=== PATIENT | female | born 1965 | race Caucasian/White ===

== ENCOUNTER 2020-09-25 12:10 | Inpatient (IN) | payer BC, OTHER ==
[~2020-09-25] VITALS: Ht 165.1 cm; Wt 68.5 kg
[~2020-09-25 12:10] MED LIST: NO HOME MEDICATIONS
--- NOTE | 2020-09-25 12:20 | NUR ---
MADELEINE [id number] from Home"Been having sciatica/Right leg pain (01/04 per patient) x1wk and swelling Fell down today made pain worse". Noted rg lower leg edema +3. Will continue to monitor the patient.
--- NOTE | 2020-09-25 12:40 | NUR ---
DR. QUINTERO AT BEDSIDE.
--- NOTE | 2020-09-25 12:55 | NUR ---
TREE CLIMBER AT BEDSIDE.
--- NOTE | 2020-09-25 14:22 | NUR ---
COVID SWAB DONE AND SENT TO THE LAB
[2020-09-25] MEDS ORDERED: IBUP200C5 PO (14:35)
[2020-09-25] MEDS ORDERED: ONDANSETRON HCL/PF 4 MG/2 ML VIAL IVP PRN (15:30)
[2020-09-25] MEDS ORDERED: Z GUARD REMEDY 2 OZ OINT TP PRN (15:30)
[2020-09-25] MEDS ORDERED: ZOLPIDEM TARTRATE 5 MG TABLET PO PRN (15:30)
[2020-09-25] MEDS ORDERED: MAGNESIUM HYDROXIDE 30 ML UDC PO PRN (15:30)
[2020-09-25] MEDS ORDERED: MAG HYDROX/AL HYDROX/SIMETH 30 ML UDC PO PRN (15:30)
--- NOTE | 2020-09-25 17:46 | NUR ---
report given to nurse Farris
--- NOTE | 2020-09-25 18:02 | NUR ---
PATIENT TRANSFERRED TO ROOM 307-1 IN STABLE CONDITION.
--- NOTE | 2020-09-25 18:30 | NUR ---
MS/RN RECEIVING NOTES RECEIVED PATIENT ALERT AND ORIENTED X4, ABLE TO MAKE NEEDS KNOWN. TRANSFERED FROM ER WITH A HIP FRACTURE. PATIENT IN EXTREME PAIN ON RIGHT HIP. MORPHINE PRN GIVEN. ORIENTED PATIENT ON THE UNIT AND HOW TO SAFE USE OF EQUIPOTENTS. SAFETY PRECAUTIONS IN PLACED. BED LOCKED IN LOWEST POSITION, CALL LIGHT WITHIN REACH. WILL ENDORSE TO THE NEXT SHIFT FOR CONTINUITY OF CARE.
[2020-09-25] MEDS: MORPHINE SULFATE INJ 2 MG/ML DISP.SYRIN IV PRN ×2 (18:41→22:48)
[2020-09-25 19:15] LABS: BASOPHILS % (AUTO) 0.1 % (0.0-2.0); EOSINOPHILS % (AUTO) 0.6 % (0.0-6.0); HEMATOCRIT 39 % (33-45); HEMOGLOBIN 13.6 g/dL (11.5-14.8); LYMPHOCYTES # (AUTO) 2.3 K/uL (0.8-4.8); LYMPHOCYTES % (AUTO) 31.2 % (20.0-44.0); MEAN CORPUSCULAR HGB CONC 35 g/dl (31.0-36.0); MEAN CORPUSCULAR VOLUME 88 fL (82-100); MONOCYTES # (AUTO) 0.8 K/uL (0.1-1.30); NEUTROPHILS # (AUTO) 4.3 K/uL (1.8-8.9); NEUTROPHILS % (AUTO) 57.1 % (43.0-81.0); PLATELET COUNT (AUTO) 276 K/uL (150-450); RED BLOOD CELL COUNT(AUTO) 4.49 MIL/uL (4.0-5.2); WHITE BLOOD COUNT (AUTO) 7.5 K/uL (4.3-11.0)
[2020-09-25 19:21] LABS: CALCIUM, SERUM 9.1 mg/dL (8.5-10.1); CREATININE 0.7 mg/dL (0.6-1.3); POTASSIUM 3.5 mmol/L (3.5-5.1)
--- NOTE | 2020-09-25 19:39 | NUR ---
MS RN OPENING NOTE PATIENT A/OX4; ABLE TO MAKE NEEDS KNOWN. TOLERATING ROOM AIR WELL WITH NO SOB. WILL CONTINUE PAIN ASSESSMENT. R HAND #20G S/L; PATENT AND INTACT. SAFETY MEASURES IN PLACE: BED TO LOWEST LOCKED POSITION, SIDE RAILS UPX2, CALL LIGHT WITHIN EASY REACH, BED ALARM ON. PATIENT IN STABLE CONDITION WILL CONTINUE PLAN OF CARE.
[2020-09-25 20:00] VITALS: BP 131/71
[2020-09-25] MEDS: ENOXAPARIN SODIUM 40 MG/0.4 ML DISP.SYRIN SQ SCH (22:20)
--- NOTE | 2020-09-25 22:48 | NUR ---
MS RN NOTE - PAIN PATIENT C/O 10/10 RIGHT HIP AND KNEE PAIN. ADMINISTERED MORPHINE ORDERED. WILL CONTINUE TO REASSESS FOR PAIN IN 30 MINUTES.
[2020-09-26] MEDS: HYDROCODONE/APAP 5/325MG TABLET PO PRN ×3 (02:10→18:20)
--- NOTE | 2020-09-26 02:10 | NUR ---
MS RN NOTE - PAIN PATIENT C/O 09/04 RIGHT HIP AND KNEE PAIN. ADMINISTERED NORCO 5 - 325MG ORDERED. WILL CONTINUE TO REASSESS FOR PAIN IN 30 MINUTES.
[2020-09-26] MEDS: MORPHINE SULFATE INJ 2 MG/ML DISP.SYRIN IV PRN ×4 (04:00→23:51)
--- NOTE | 2020-09-26 04:00 | NUR ---
MS RN NOTE - PAIN PATIENT C/O 11/04 RIGHT HIP AND KNEE PAIN. ADMINISTERED MORPHINE ORDERED. WILL CONTINUE TO REASSESS FOR PAIN IN 30 MINUTES.
[2020-09-26 05:45] LABS: BASOPHILS % (AUTO) 0.1 % (0.0-2.0); EOSINOPHILS % (AUTO) 0.7 % (0.0-6.0); HEMATOCRIT 39 % (33-45); HEMOGLOBIN 13.1 g/dL (11.5-14.8); LYMPHOCYTES # (AUTO) 2.8 K/uL (0.8-4.8); LYMPHOCYTES % (AUTO) 34.3 % (20.0-44.0); MEAN CORPUSCULAR HGB CONC 34 g/dl (31.0-36.0); MEAN CORPUSCULAR VOLUME 89 fL (82-100); MONOCYTES # (AUTO) 0.9 K/uL (0.1-1.30); MONOCYTES % (AUTO) 10.6 % (2.0-12.0); NEUTROPHILS # (AUTO) 4.4 K/uL (1.8-8.9); NEUTROPHILS % (AUTO) 54.3 % (43.0-81.0); PLATELET COUNT (AUTO) 234 K/uL (150-450); RED BLOOD CELL COUNT(AUTO) 4.36 MIL/uL (4.0-5.2); WHITE BLOOD COUNT (AUTO) 8.1 K/uL (4.3-11.0)
--- NOTE | 2020-09-26 05:57 | NUR ---
MS RN CLOSING NOTE PATIENT SLEEPING A/OX4; ABLE TO MAKE NEEDS KNOWN. TOLERATING ROOM AIR WELL WITH NO SOB. R HAND #20G S/L; PATENT AND INTACT. ABNORMAL EXTERNAL ROTATION NOTED TO RLE. SAFETY MEASURES IN PLACE: BED TO LOWEST LOCKED POSITION, SIDE RAILS UPX2, CALL LIGHT WITHIN EASY REACH, BED ALARM ON. PATIENT IN STABLE CONDITION; WILL ENDORSE PLAN OF CARE.
[2020-09-26 06:15] LABS: CALCIUM, SERUM 8.9 mg/dL (8.5-10.1); CREATININE 0.6 mg/dL (0.6-1.3); PHOSPHORUS 3.4 mg/dL (2.5-4.9); POTASSIUM 3.9 mmol/L (3.5-5.1); THYROID STIMULATING HORMONE 5.019 uIU/mL (0.358-3.74)
[2020-09-26] MEDS: PANTOPRAZOLE 40 MG TABLET.DR PO SCH (06:42)
--- NOTE | 2020-09-26 06:42 | NUR ---
MS RN NOTE - PAIN PATIENT C/O 08/04 RIGHT HIP AND KNEE PAIN. ADMINISTERED NORCO 5 - 325MG ORDERED. WILL CONTINUE TO REASSESS FOR PAIN IN 30 MINUTES.
--- NOTE | 2020-09-26 07:42 | NUR ---
MS/RN OPENING NOTE RECEIVED PATIENT IN BED SLEEPING, EASILY AROUSABLE, A/OX4; ABLE TO MAKE NEEDS KNOWN. TOLERATING ROOM AIR WELL WITH NO SOB. R HAND #20G S/L; PATENT AND INTACT. NO DISTRESS NOTED AT THIS TIME. SAFETY PRECAUTIONS IN PLACE: BED TO LOWEST LOCKED POSITION, SIDE RAILS UPX2, CALL LIGHT WITHIN EASY REACH, BED ALARM ON. PATIENT IN STABLE CONDITION; WILL CONTINUE TO MONITOR PATIENT.
[2020-09-26 08:00] VITALS: BP 126/72
[2020-09-26] MEDS: IV NS 0.9% 1,000 ML IV PRN ×2 (08:48→17:06)
--- NOTE | 2020-09-26 11:33 | NUR ---
MS/RN NOTES CONTACTED DR. ROBINS REGARDING ORTHO CONSULT, PER DR. ROBINS, ORTHO WAS CALLED IN FROM ER YESTERDAY. TEXTED DR. BUENO ([employer]O [employer]) AND FOLLOWED UP REGARDING PATIENT NEEDED TO BE SEEN FOR ORTHO CONSULT. AWAITING RESPONSE.
[2020-09-26] MEDS: HYDROCODONE/APAP 10/325MG TABLET PO PRN ×3 (12:16→18:15)
[2020-09-26 16:07] VITALS: BP 114/60
--- NOTE | 2020-09-26 18:51 | NUR ---
MS/RN NORCO ADMIN PATIENT REFUSED NORCO 10/325MG PO PRN FOR PAIN, AND INSTEAD WANTED A SMALLER DOSE. RN RETURNED NORCO 10/325MG ONE TAB TO THE OMNICEL WITNESSED BY CHARGE NURSE MARISOL. RN PULLED FROM OMNICEL AND ADMINISTERED NORCO 5/325MG PO PRN AT 18:20.
--- NOTE | 2020-09-26 18:55 | NUR ---
MS/RN CLOSING NOTE PATIENT IN BED AWAKE, A/OX4; ABLE TO MAKE NEEDS KNOWN. TOLERATING ROOM AIR WELL WITH NO SOB. R HAND #20G IV ACCESS IS INTACT WITH A RUNNING IV NS @125 ML/HR. NO DISTRESS NOTED AT THIS TIME. ALL NEEDS MET. SAFETY PRECAUTIONS IN PLACE: BED TO LOWEST LOCKED POSITION, SIDE RAILS UPX2, CALL LIGHT WITHIN EASY REACH, BED ALARM ON. PATIENT IN STABLE CONDITION; WILL ENDORSE TO THE NEXT SHIFT FOR CONTINUITY OF CARE.
--- NOTE | 2020-09-26 19:59 | NUR ---
MS RN OPENING NOTE PATIENT A/OX4; ABLE TO MAKE NEEDS KNOWN. TOLERATING ROOM AIR WELL WITH NO SOB. R HAND #20G NS @ 125ML/HR; PATENT AND INTACT. ABNORMAL EXTERNAL ROTATION NOTED TO RLE. ALL NEEDS MET. SAFETY MEASURES IN PLACE: BED TO LOWEST LOCKED POSITION, SIDE RAILS UPX2, CALL LIGHT WITHIN EASY REACH, BED ALARM ON. PATIENT IN STABLE CONDITION; WILL CONTINUE PLAN OF CARE.
[2020-09-26 20:00] VITALS: BP_SYST 122; BP_SYST 138; BP_DIAS 72; BP_DIAS 83
[2020-09-26] MEDS: ENOXAPARIN SODIUM 40 MG/0.4 ML DISP.SYRIN SQ SCH (21:09)
--- NOTE | 2020-09-26 23:51 | NUR ---
MS RN NOTE - PAIN PATIENT C/O 10/10 RIGHT HIP AND KNEE PAIN. ADMINISTERED MORPHINE ORDERED. WILL CONTINUE TO REASSESS FOR PAIN IN 30 MINUTES.
[2020-09-27] MEDS: IV NS 0.9% 1,000 ML IV PRN (00:55)
[2020-09-27] MEDS: MORPHINE SULFATE INJ 2 MG/ML DISP.SYRIN IV PRN ×4 (03:57→17:07)
--- NOTE | 2020-09-27 04:30 | NUR ---
MS RN NOTE -F/C INSERTED F/C WITH YELLOW URINE OUTPUT BY GRAVITY; PATENT AND INTACT. EDUCATED PATIENT RISKS AND BENEFITS OF F/C.
[2020-09-27 05:50] LABS: BASOPHILS % (AUTO) 0.1 % (0.0-2.0); EOSINOPHILS % (AUTO) 2.9 % (0.0-6.0); HEMATOCRIT 37 % (33-45); HEMOGLOBIN 12.4 g/dL (11.5-14.8); LYMPHOCYTES # (AUTO) 2.1 K/uL (0.8-4.8); LYMPHOCYTES % (AUTO) 31.7 % (20.0-44.0); MEAN CORPUSCULAR HGB CONC 34 g/dl (31.0-36.0); MEAN CORPUSCULAR VOLUME 89 fL (82-100); MONOCYTES # (AUTO) 0.6 K/uL (0.1-1.30); MONOCYTES % (AUTO) 9.4 % (2.0-12.0); NEUTROPHILS # (AUTO) 3.6 K/uL (1.8-8.9); NEUTROPHILS % (AUTO) 55.9 % (43.0-81.0); PLATELET COUNT (AUTO) 242 K/uL (150-450); WHITE BLOOD COUNT (AUTO) 6.5 K/uL (4.3-11.0)
--- NOTE | 2020-09-27 06:13 | NUR ---
MS RN CLOSING NOTE PATIENT SLEEPING A/OX4; ABLE TO MAKE NEEDS KNOWN. TOLERATING ROOM AIR WELL WITH NO SOB. R HAND #20G S/L; PATENT AND INTACT. ABNORMAL EXTERNAL ROTATION NOTED TO RLE. F/C DRAINING CLEAR YELLOW URINE; PATENT AND INTACT. SAFETY MEASURES IN PLACE: BED TO LOWEST LOCKED POSITION, SIDE RAILS UPX2, CALL LIGHT WITHIN EASY REACH, BED ALARM ON. PATIENT IN STABLE CONDITION; WILL ENDORSE PLAN OF CARE.
[2020-09-27 06:54] LABS: ALBUMIN 2.8 g/dL (3.4-5.0); BILIRUBIN,TOTAL 0.6 mg/dL (0.2-1.0); CALCIUM, SERUM 8.7 mg/dL (8.5-10.1); CREATININE 0.5 mg/dL (0.6-1.3); MAGNESIUM 1.7 mg/dL (1.8-2.4); PHOSPHORUS 2.7 mg/dL (2.5-4.9); POTASSIUM 3.7 mmol/L (3.5-5.1); TOTAL PROTEIN, SERUM 5.9 g/dL (6.4-8.2)
--- NOTE | 2020-09-27 07:15 | NUR ---
RN NOTES PATIENT IN BED RESTING, AWAKE AND VERBALLY RESPONSIVE. A/O X4, ABLE TO MAKE NEEDS KNOWN. BREATHING EVEN AND UNLABORED, TOLERATING ROOM AIR. SEEN EATING BREAKFAST. MATA CATH INTACT AND DRAINING YELLOW-COLORED URINE. SAFETY MEASURES IN PLACE. WILL CONTINUE TO MONITOR.
[2020-09-27 07:42] VITALS: BP 131/76
[2020-09-27] MEDS: PANTOPRAZOLE 40 MG TABLET.DR PO SCH (07:47)
--- NOTE | 2020-09-27 08:02 | NUR ---
RN NOTES PATIENT REQUESTED PAIN MEDICATION FOR PAIN RATED 10/10; PRN MORPHINE PROVIDED TO PATIENT INDICATED.
[2020-09-27] MEDS: Magnesium 1GM/D5W 100ML PREMIX 100 ML IV SCH ×2 (08:27→10:33)
[2020-09-27] MEDS: HYDROCODONE/APAP 5/325MG TABLET PO PRN ×3 (08:56→18:38)
--- NOTE | 2020-09-27 11:50 | NUR ---
RN NOTES SEEN BY DR. BUENO TODAY W/ ORDER FOR SURGERY: IM NAILING RIGHT SUBTROCHANTERIC FEMUR FX. CONSENT FORMS SIGNED BY PATIENT AND PLACED IN CHART. WILL ENDORSE CHECKLIST TO SPECIALIST WOUND CARE RN SURGERY IS FOR TOMORROW.
[2020-09-27 16:00] VITALS: BP 106/72
--- NOTE | 2020-09-27 18:53 | NUR ---
RN NOTES PATIENT IN BED RESTING, AWAKE AND VERBALLY RESPONSIVE. BREATHING EVEN AND UNLABORED, CONTINUES ON ROOM AIR. NPO POST MIDNIGHT FOR SURGERY W/ DR. BUENO TOMORROW. CONSENT IN CHART. SAFETY MEASURES MAINTAINED. WILL ENDORSE TO EMERGENCY DEPARTMENT AIDE RN FOR ANSHUL.
[2020-09-27 20:00] VITALS: BP 115/69
--- NOTE | 2020-09-27 20:15 | NUR ---
MS/TELE/RN RECEIVED PATIENT LYING IN BED AWAKE, ALERT, ORIENTED, COMFORTABLE, NO C/O PAIN, NO DISTRESS NOTED, CALL LIGHT IN REACH, PLAN OF CARE DISCUSSED, VERBALISED UNDERSTANDING. ALL NEEDS ATTENDED. WILL MONITOR.
[2020-09-27] MEDS: ENOXAPARIN SODIUM 40 MG/0.4 ML DISP.SYRIN SQ SCH (21:00)
--- NOTE | 2020-09-27 21:37 | NUR ---
MS/VERONICA/RN OBTAINED AN ORDER FROM KAL PEUNTE, TO HOLD THE LOVENOX DOSE TONIGHT PATIENT WILL HAVE SURGERY TOMORROW.
[2020-09-28] MEDS: MORPHINE SULFATE INJ 2 MG/ML DISP.SYRIN IV PRN ×4 (02:05→21:13)
[2020-09-28] MEDS: IV NS 0.9% 1,000 ML IV PRN ×2 (02:17→10:36)
--- NOTE | 2020-09-28 06:15 | NUR ---
MA/TELE/RN PATIENT IS AWAKE, COMFORTABLE, NO C/O PAIN, NO DISTRESS NOTE, NO CHANGE IN CONDITION, URINE SPECIMEN FOR UA COLLECTED FROM F/C PORT, CALL LIGHT IN REACH, ALL NEEDS ATTENDED AT THIS TIME, WILL CONTINUE TO MONITOR.
[2020-09-28 06:38] LABS: BASOPHILS % (AUTO) 0.2 % (0.0-2.0); EOSINOPHILS % (AUTO) 2.4 % (0.0-6.0); HEMATOCRIT 36 % (33-45); HEMOGLOBIN 12.1 g/dL (11.5-14.8); LYMPHOCYTES % (AUTO) 30.6 % (20.0-44.0); MEAN CORPUSCULAR HGB CONC 34 g/dl (31.0-36.0); MEAN CORPUSCULAR VOLUME 89 fL (82-100); MONOCYTES # (AUTO) 0.5 K/uL (0.1-1.30); MONOCYTES % (AUTO) 8.2 % (2.0-12.0); NEUTROPHILS # (AUTO) 3.9 K/uL (1.8-8.9); NEUTROPHILS % (AUTO) 58.6 % (43.0-81.0); PLATELET COUNT (AUTO) 243 K/uL (150-450); RED BLOOD CELL COUNT(AUTO) 4.05 MIL/uL (4.0-5.2); WHITE BLOOD COUNT (AUTO) 6.6 K/uL (4.3-11.0)
[2020-09-28 07:04] LABS: ALBUMIN 2.5 g/dL (3.4-5.0); BILIRUBIN,TOTAL 0.5 mg/dL (0.2-1.0); CALCIUM, SERUM 8.4 mg/dL (8.5-10.1); CREATININE 0.5 mg/dL (0.6-1.3); MAGNESIUM 1.9 mg/dL (1.8-2.4); PHOSPHORUS 2.9 mg/dL (2.5-4.9); POTASSIUM 3.9 mmol/L (3.5-5.1); TOTAL PROTEIN, SERUM 5.5 g/dL (6.4-8.2)
[2020-09-28] MEDS: PANTOPRAZOLE 40 MG TABLET.DR PO SCH (07:30)
--- NOTE | 2020-09-28 07:44 | NUR ---
MS RN OPENING NOTE RECEIVED PATIENT RESTING IN BED PATIENT IS A/OX4; ABLE TO MAKE NEEDS KNOWN. PATIENT IS BREATHING EVENLY AND NONLABORED, TOLERATING ROOM AIR WELL WITH NO SOB. PATIENT HAS IV ACCESS ON R HAND #20G RUNNING NS @ 125ML/HR; PATENT AND INTACT. ABNORMAL EXTERNAL ROTATION NOTED TO RLE. PATIENT DID NOT COMPLAIN OF PAIN AT THIS TIME. PATIENT IS SCHEDULED FOR SURGERY LATER THIS MORNING, CONSENTS SIGNED. SAFETY MEASURES IN PLACE: BED TO LOWEST LOCKED POSITION, SIDE RAILS UPX2, CALL LIGHT WITHIN EASY REACH, BED ALARM ON. WILL CONTINUE TO MONITOR
[2020-09-28 07:49] LABS: BILIRUBIN,URINE NEGATIVE (NEGATIVE); COLOR,URINE YELLOW (YELLOW); PH,URINE 6.5 (5.0-8.0); PROTEIN,URINE NEGATIVE (NEGATIVE); UGLUCOSE NEGATIVE (NEGATIVE)
[2020-09-28 07:50] LABS: LEUKOCYTE ESTERASE ,URINE TRACE (NEGATIVE); NITRITE, URINE NEGATIVE (NEGATIVE); UROBILINOGEN,URINE 0.2 EU/dL (0.2)
[2020-09-28 08:00] VITALS: BP 126/75
[2020-09-28 08:53] LABS: BACTERIA,URINE Many /HPF (None Seen); RBC,URINE 0-2 /HPF (0-2); SQUAMOUS EPITHELIAL CELL,UR Rare /HPF (None Seen)
--- NOTE | 2020-09-28 08:58 | NUR ---
RN NOTE PATIENT COMPLAINED OF HIP PAIN 12/05, PATIENT ASKED FOR PRN PAIN MEDICATION. GAVE MEDICATION ORDERED
--- NOTE | 2020-09-28 10:20 | NUR ---
RN NOTE PATIENT LEFT FOR SURGERY IN STABLE CONDITION
[2020-09-28] MEDS ORDERED: BUPIVACAINE 0.5 % PF 150 MG/30 ML VIAL ONE (10:50)
[2020-09-28] MEDS ORDERED: BACITRACIN 50000 UNITS/VIAL ONE (10:51)
[2020-09-28] MEDS ORDERED: HYDROMORPHONE INJ 2 MG/ML DISP.SYRIN ONE (10:52)
[2020-09-28] MEDS ORDERED: MIDAZOLAM HCL 2 MG/2ML VIAL ONE (10:57)
[2020-09-28] MEDS ORDERED: HYDROMORPHONE 1 MG/1 ML DISP.SYRIN ONE ×2 (12:54→13:14)
--- NOTE | 2020-09-28 13:45 | NUR ---
RN NOTE RECEIVED PATIENT BACK FROM SURGERY. PATIENT HAS TWO SURGICAL WOUNDS ON LEFT HIP. VITALS 144/96, HR 86, RR18. O2 98 AND TEMP 97.8. PATIENT IS STABLE WILL CONTINUE TO MONITOR.
[2020-09-28] MEDS: IV D5/0.45 NACL W/20 MEQ KCL 1L IV SCH (14:18)
[2020-09-28 16:00] VITALS: BP 128/75
[2020-09-28] MEDS: ANCEF 1 GM/50 ML D5W IV SCH (17:00)
--- NOTE | 2020-09-28 17:19 | NUR ---
RN NOTE PATIENT COMPLAINED OF HIP PAIN 12/05, PATIENT ASKED FOR PRN PAIN MEDICATION. GAVE MEDICATION ORDERED
--- NOTE | 2020-09-28 18:28 | NUR ---
MS RN CLOSING NOTE PATIENT RESTING IN BED PATIENT IS A/OX4; ABLE TO MAKE NEEDS KNOWN. PATIENT IS BREATHING EVENLY AND NONLABORED, TOLERATING ROOM AIR WELL WITH NO SOB. PATIENT HAS IV ACCESS ON R HAND #20G RUNNING D5 1/2 NS WITH K 20 MEQ@ 75ML/HR; PATENT AND INTACT. PATIENT HAS SURGICAL DRESSING INTACT, SURGERY WAS PERFORMED TODAY. PATIENT DID NOT COMPLAIN OF PAIN AT THIS TIME. PATIENT HAS MATA CATHETER DRAINING CLEAR YELLOW URINE. PATIENT IS 50% WEIGHT BEARING ON THE RIGHT LEG WITH WALKER. SAFETY MEASURES ARE IN PLACE SAFETY MEASURES IN PLACE: BED TO LOWEST LOCKED POSITION, SIDE RAILS UPX2, CALL LIGHT WITHIN EASY REACH, BED ALARM ON. WILL ENDORSE TO ONCOMING SHIFT.
[2020-09-28] MEDS: ACETAMINOPHEN 325 MG TABLET PO PRN (20:01)
[2020-09-28] MEDS: ENOXAPARIN SODIUM 40 MG/0.4 ML DISP.SYRIN SQ SCH (20:02)
[2020-09-28 20:07] VITALS: BP 105/64
[2020-09-29] MEDS: MORPHINE SULFATE INJ 2 MG/ML DISP.SYRIN IV PRN ×8 (00:03→20:17)
[2020-09-29] MEDS: IV D5/0.45 NACL W/20 MEQ KCL 1L IV SCH (02:35)
[2020-09-29] MEDS: ANCEF 1 GM/50 ML D5W IV SCH ×2 (02:35→09:08)
[2020-09-29] MEDS: ACETAMINOPHEN 325 MG TABLET PO PRN ×3 (05:30→19:33)
[2020-09-29 06:02] LABS: BASOPHILS % (AUTO) 0.2 % (0.0-2.0); EOSINOPHILS % (AUTO) 1.4 % (0.0-6.0); HEMATOCRIT 27 % (33-45); HEMOGLOBIN 9.3 g/dL (11.5-14.8); LYMPHOCYTES # (AUTO) 2.4 K/uL (0.8-4.8); LYMPHOCYTES % (AUTO) 34.5 % (20.0-44.0); MEAN CORPUSCULAR HGB CONC 35 g/dl (31.0-36.0); MEAN CORPUSCULAR VOLUME 89 fL (82-100); MONOCYTES # (AUTO) 0.8 K/uL (0.1-1.30); MONOCYTES % (AUTO) 12.2 % (2.0-12.0); NEUTROPHILS # (AUTO) 3.5 K/uL (1.8-8.9); NEUTROPHILS % (AUTO) 51.7 % (43.0-81.0); PLATELET COUNT (AUTO) 247 K/uL (150-450); RED BLOOD CELL COUNT(AUTO) 3.04 MIL/uL (4.0-5.2); WHITE BLOOD COUNT (AUTO) 6.8 K/uL (4.3-11.0)
[2020-09-29 06:55] LABS: CALCIUM, SERUM 8.2 mg/dL (8.5-10.1); CREATININE 0.5 mg/dL (0.6-1.3); MAGNESIUM 1.7 mg/dL (1.8-2.4); PHOSPHORUS 2.3 mg/dL (2.5-4.9); POTASSIUM 4.1 mmol/L (3.5-5.1)
--- NOTE | 2020-09-29 07:13 | NUR ---
MS RN OPENING NOTE RECEIVED PATIENT RESTING IN BED PATIENT IS A/OX4; ABLE TO MAKE NEEDS KNOWN. PATIENT IS BREATHING EVENLY AND NONLABORED, TOLERATING ROOM AIR WELL WITH NO SOB. PATIENT HAS IV ACCESS ON R HAND #20G RUNNING D5 1/2 NS WITH K 20 MEQ@ 75ML/HR; PATENT AND INTACT. PATIENT HAS SURGICAL DRESSING INTACT.. PATIENT DID NOT COMPLAIN OF PAIN AT THIS TIME. PATIENT HAS MATA CATHETER DRAINING CLEAR YELLOW URINE. PATIENT IS 50% WEIGHT BEARING ON THE RIGHT LEG WITH WALKER. SAFETY MEASURES ARE IN PLACE SAFETY MEASURES IN PLACE: BED TO LOWEST LOCKED POSITION, SIDE RAILS UPX2, CALL LIGHT WITHIN EASY REACH, BED ALARM ON. WILL CONTINUE TO MONITOR
--- NOTE | 2020-09-29 07:30 | NUR ---
RN NOTE PATIENT COMPLAINED OF HIP PAIN 12/05, PATIENT ASKED FOR PRN PAIN MEDICATION. GAVE MEDICATION ORDERED
[2020-09-29] MEDS: PANTOPRAZOLE 40 MG TABLET.DR PO SCH (07:31)
[2020-09-29 08:00] VITALS: BP 109/58
[2020-09-29] MEDS: NEUTRA PHOS 1 POWD.PACKET PO SCH ×2 (09:38→16:30)
[2020-09-29] MEDS: Magnesium 1GM/D5W 100ML PREMIX 100 ML IV SCH ×2 (09:39→10:39)
--- NOTE | 2020-09-29 15:05 | NUR ---
RN NOTE PATIENT COMPLAINED OF HIP PAIN 12/05, PATIENT ASKED FOR PRN PAIN MEDICATION. GAVE MEDICATION ORDERED
[2020-09-29 16:00] VITALS: BP 112/63
--- NOTE | 2020-09-29 18:27 | NUR ---
MS RN CLOSING NOTE PATIENT RESTING IN BED PATIENT IS A/OX4; ABLE TO MAKE NEEDS KNOWN. PATIENT IS BREATHING EVENLY AND NONLABORED, TOLERATING ROOM AIR WELL WITH NO SOB. PATIENT HAS IV ACCESS ON R HAND #20G, PATENT AND INTACT. PATIENT HAS SURGICAL DRESSING C/D/I. PATIENT DID NOT COMPLAIN OF PAIN AT THIS TIME. PATIENT HAS MATA CATHETER DRAINING CLEAR YELLOW URINE. PATIENT CONTINUES TO BE 50% WEIGHT BEARING ON THE RIGHT LEG WITH WALKER. ALL MEDICATION GIVEN ORDERED. SAFETY MEASURES ARE IN PLACE SAFETY MEASURES IN PLACE: BED TO LOWEST LOCKED POSITION, SIDE RAILS UPX2, CALL LIGHT WITHIN EASY REACH, BED ALARM ON. WILL ENDORSE TO ONCOMING SHIFT
--- NOTE | 2020-09-29 19:00 | NUR ---
MS RN OPENING PATIENT ENDORSED TO ME IN BED. A/OX4. COMPLAINING OF PAIN. NO S/S OF APPARENT DISTRESS. MATA IN PLACE DRAINING CLEAR AURELIA YELLOW URINE. PATIENT R. THIGH NOTED SWOLLEN, ENDORSED TO ME LIKE THAT. NO IV FLUID RUNNING AT THE MOMENT. SAFETY IN PLACE: BED IN LOWEST, LOCKED POSITION. CALL LIGHT WITHIN REACH. WILL CONTINUE TO MONITOR.
--- NOTE | 2020-09-29 19:34 | NUR ---
MS RN NOTES PATIENT REQUESTED FOR TYLENOL FOR PAIN. TYLENOL GIVEN AT THIS TIME PRN.
[2020-09-29 20:00] VITALS: BP 100/58
--- NOTE | 2020-09-29 20:23 | NUR ---
MS RN NOTES PATIENT C/O UNRELIEVED PAIN 12/05. GIVEN MORPHINE 1ML PRN. ICE PACKS INITIATED ON RIGHT HEEL AND ELEVATED THE SITE. WILL REASSESS AND CONTINUE TO MONITOR.
[2020-09-29] MEDS: ENOXAPARIN SODIUM 40 MG/0.4 ML DISP.SYRIN SQ SCH (21:01)
[2020-09-30] MEDS: MORPHINE SULFATE INJ 2 MG/ML DISP.SYRIN IV PRN ×5 (01:24→14:03)
--- NOTE | 2020-09-30 01:24 | NUR ---
MS RN NOTES PATIENT C/O 10/10 PAIN. GIVEN MORPHINE PRN. WILL REASSESS.
--- NOTE | 2020-09-30 04:24 | NUR ---
MS RN NOTES PATIENT C/O 10/10 PAIN. GIVEN MORPHINE 1ML PRN. WILL REASSESS.
--- NOTE | 2020-09-30 06:51 | NUR ---
MS RN NOTES PATIENT C/O PAIN 10/10. GIVEN MORPHINE PRN. WILL REASSESS.
--- NOTE | 2020-09-30 07:30 | NUR ---
MS RN CLOSING NOTE PATIENT IN BED. A/OX4. NO S/S OF APPARENT DISTRESS. PAIN MANAGED WITH MEDICATIONS, ICE PACK, ELEVATED LEG. NO IV FLUID RUNNING. R. LOWER EXTREMITY SWOLLEN. DRESSING DRY, CLEAN, AND INTACT. MATA DRAINING CLEAR, YELLOW URINE. SAFETY KEPT IN PLACE THE WHOLE SHIFT: BED IN LOWEST, LOCKED POSITION. CALL LIGHT WITHIN REACH. ALL NEEDS ATTENDED. ALL SCHED MEDS ADMINISTERED. WILL ENDORSE CARE TO MORNING RN.
[2020-09-30 08:00] VITALS: BP 100/50
--- NOTE | 2020-09-30 08:08 | NUR ---
MS RN OPENING NOTE PATIENT IS IN BED RESTING, PATIENT IS IN NO ACUTE DISTRESS, PATIENT IS ON ROOM AIR TOLERATING WELL. PATIENT HAS A MATA CATHETER. SAFETY PRECAUTIONS ARE ON, BED IS LOCKED IN THE LOWEST POSITION WITH SIDE RAILS UP, CALL LIGHT WITHIN THE REACH. WILL CONTINUE TO MONITOR CLOSELY.
[2020-09-30] MEDS: PANTOPRAZOLE 40 MG TABLET.DR PO SCH (08:26)
[2020-09-30] MEDS ORDERED: ENOX40DI SQ ×2 (09:20→16:19)
[2020-09-30 11:22] LABS: BASOPHILS % (AUTO) 0.1 % (0.0-2.0); EOSINOPHILS % (AUTO) 2.3 % (0.0-6.0); HEMATOCRIT 27 % (33-45); HEMOGLOBIN 9.3 g/dL (11.5-14.8); LYMPHOCYTES % (AUTO) 31.9 % (20.0-44.0); MEAN CORPUSCULAR HGB CONC 34 g/dl (31.0-36.0); MEAN CORPUSCULAR VOLUME 89 fL (82-100); MONOCYTES # (AUTO) 0.6 K/uL (0.1-1.30); MONOCYTES % (AUTO) 10.4 % (2.0-12.0); NEUTROPHILS # (AUTO) 3.4 K/uL (1.8-8.9); NEUTROPHILS % (AUTO) 55.3 % (43.0-81.0); PLATELET COUNT (AUTO) 256 K/uL (150-450); RED BLOOD CELL COUNT(AUTO) 3.07 MIL/uL (4.0-5.2); WHITE BLOOD COUNT (AUTO) 6.2 K/uL (4.3-11.0)
[2020-09-30] MEDS ORDERED: ASPI-992 PO (12:33)
[2020-09-30] MEDS ORDERED: MAGNESIUM OXIDE 400 MG TABLET PO ONE (13:00)
[2020-09-30] MEDS ORDERED: CEPH500C2 PO (16:23)
[2020-09-30] MEDS ORDERED: CEPHALEXIN MONOHYDRATE 500 MG CAPSULE PO SCH (16:31)
--- NOTE | 2020-09-30 18:54 | NUR ---
MS RN CLOSING NOTE PATIENT IS IN BED RESTING, PATIENT IS IN NO ACUTE DISTRESS, PATIENT IS ON ROOM AIR TOLERATING WELL. PATIENT HAS A MATA CATHETER. SAFETY PRECAUTIONS ARE ON, BED IS LOCKED IN THE LOWEST POSITION WITH SIDE RAILS UP, CALL LIGHT WITHIN THE REACH. ENDORSE PATIENT DISCHARGE TO TIMBER MANAGEMENT ASSISTANT NURSE
--- NOTE | 2020-09-30 20:00 | NUR ---
MS SUPERVISOR POWER REACTOR NOTE PATIENT DISCHARGED IN STABLE CONDITION, PT STABLE ON ROOM AIR, NO S/S OF DISTRESS OR SHORTNESS OF BREATH NOTED. MATA CATHETER INTACT, OUTPUT 500 ML. IV ACCESS REMOVED, NO EXCESS BLEEDING NOTED. ARM BANDS REMOVED. ALL PT BELONGINGS ACCOUNTED FOR, DISCHARGE PAPERS GIVEN TO EMT'S. PATIENT TRANSPORTED BY EMT'S ON [facility].
== END 2020-09-30 20:00 | DRG 481 ==
LOC: ER 12:17 → MED 17:18
PROVIDERS: ATTEND Nurse Practitioner Acute Care
PROC: 0QS606Z Reposition Right Upper Femur with Intramedullary Internal Fixation Device, Open Approach (ICD-10-PCS; principal; 2020-09-28)
DX: S72.21XA Displaced subtrochanteric fracture of right femur, initial encounter for closed fracture (principal); N39.0 Urinary tract infection, site not specified; E44.0 Moderate protein-calorie malnutrition; M17.11 Unilateral primary osteoarthritis, right knee; G43.909 Migraine, unspecified, not intractable, without status migrainosus; M54.31 Sciatica, right side; Z20.822 Contact with and (suspected) exposure to COVID-19; E83.42 Hypomagnesemia; B96.20 Unspecified Escherichia coli [E. coli] as the cause of diseases classified elsewhere; Z79.01 Long term (current) use of anticoagulants; E88.09 Other disorders of plasma-protein metabolism, not elsewhere classified; W19.XXXA Unspecified fall, initial encounter; Y93.9 Activity, unspecified; Y92.009 Unspecified place in unspecified non-institutional (private) residence as the place of occurrence of the external cause; Z68.25 Body mass index [BMI] 25.0-25.9, adult
CPT/HCPCS: 36415; 71045-TC; 73502; 73552; 73564-TC; 80048-TC; 80053-TC; 80061-TC; 81001; 83735-TC; 84100-TC; 84443-TC; 85025-TC; 85730-TC; 86850-TC; 87081-TC; 87086-TC; 87186-TC; 93307-TC; 97112-TC; 97116-TC; 97530-TC; A6209; C1713; C9803; G0378; J0690; J1100; J1170; J1650; J1885; J2250; J2270; J2405; J2704; J3475; J3480; J3490; J7030; J7050; J7060